=== PATIENT | female | born 2000 | race Hispanic/Latino ===

== ENCOUNTER 2019-12-17 21:14 | Inpatient (IN) | payer MEDICAID ==
[~2019-12-17] VITALS: Ht 160 cm; Wt 86.6 kg
[~2019-12-17 21:14] MED LIST: DOCU-116 PO; FERR325C PO; IBUP-2077 PO; PREN-64 PO
[2019-12-17] MEDS ORDERED: BENZOCAINE/LANOLIN/ALOE VERA 60 ML AEROSOL TP PRN (22:00)
[2019-12-17] MEDS ORDERED: WITCH HAZEL 1 PAD TP PRN (22:00)
[2019-12-17] MEDS ORDERED: ACETAMINOPHEN-CODEINE 300/30MG TAB PO PRN (22:00)
[2019-12-17] MEDS ORDERED: DIPH,PERTUSS(ACELL),TET VAC/PF 0.5 ML VIAL IM PRN (22:00)
[2019-12-17] MEDS ORDERED: LANOLIN 30GM OINTMENT TP PRN (22:00)
[2019-12-17] MEDS ORDERED: OXYTOCIN 10 USP UNITS/ML IM SCH ×2 (22:00→22:30)
[2019-12-17] MEDS ORDERED: ACETAMINOPHEN 325 MG TAB PO PRN (22:00)
[2019-12-17] MEDS ORDERED: MEASLES/MUMPS/RUBELLA VACCINE, LIVE 0.5 ML/VIAL SQ PRN (22:00)
[2019-12-17] MEDS ORDERED: LACTATED RINGERS 1000ML 1,000 ML IV PRN (22:30)
[2019-12-17 22:51] LABS: HEMATOCRIT 33.9 % (36-48); MEAN CORPUSCULAR HEMOGLOBIN 26.5 pg (27.0-33.0); MEAN CORPUSCULAR HGB CONC 33.6 g/dL (32.0-36.0); MEAN CORPUSCULAR VOLUME 78.8 fL (80-100); RED BLOOD CELL COUNT(AUTO) 4.3 MIL/uL (4.00-5.50); RED CELL DISTRIBUTION WIDTH 13.2 % (11.0-15.5); WHITE BLOOD COUNT (AUTO) 17.1 K/uL (4.8-10.8)
[2019-12-18] MEDS: IBUPROFEN 600 MG TABLET PO PRN ×3 (00:02→16:08)
[2019-12-18 01:11] LABS: APPEARANCE,URINE Cloudy (CLEAR); BILIRUBIN,URINE Small (NEGATIVE); COLOR,URINE Red (YELLOW); GLUCOSE, URINE (UA) Negative (NEGATIVE); KETONES,URINE 15 mg/dL (NEGATIVE); LEUKOCYTE ESTERASE ,URINE Small (NEGATIVE); NITRATE,URINE Negative (NEGATIVE); OCCULT BLOOD,URINE Large (NEGATIVE); PROTEIN,URINE POS 1+ mg/dL (NEGATIVE)
[2019-12-18 01:30] LABS: BACTERIA,URINE None Seen /HPF (None Seen); RBC,URINE 51-100 /HPF (0-1); SQUAMOUS EPITHELIAL CELL,UR Rare /HPF (0-2)
[2019-12-18 02:43] LABS: AMPHET/METH SCREEN,URINE NEGATIVE (NEGATIVE); BARBITURATE SCREEN, URINE NEGATIVE (NEGATIVE); BENZODIAZEPINES SCREEN,URINE NEGATIVE (NEGATIVE); CANNABINOID SCREEN,URINE NEGATIVE (NEGATIVE); COCAINE SCREEN,URINE NEGATIVE (NEGATIVE); OPIATE SCREEN,URINE NEGATIVE (NEGATIVE); PHENCYCLIDINE SCREEN,URINE NEGATIVE (NEGATIVE)
--- NOTE | 2019-12-18 03:40 | NUR ---
REPORT Report given to Bridget Moscoso RN and patient care endorsed
[2019-12-18 04:44] VITALS: BP_SYST 101; BP_SYST 96; BP_DIAS 55; BP_DIAS 57
[2019-12-18 07:50] VITALS: BP 125/72
[2019-12-18] MEDS: DOCUSATE SODIUM 100 MG CAP PO SCH ×2 (08:30→19:54)
[2019-12-18 09:06] LABS: RAPID PLASMA REAGIN NONREACTIVE (NONREACTIVE)
[2019-12-18 12:00] VITALS: BP 116/64
--- NOTE | 2019-12-18 15:03 | NUR ---
HISTORY OF MARIJUANA USE SW spoke with patient. She states she lives with her boyfriend, Roque Jacobs at [address] [place] [address] in [place]. She has a 4 year old daughter who lives with patient's mother. No home services or DME. Patient is able to complete ADL's and drives. She is presently not working but her boyfriend works and earns about $1000 a month. Patient reports that all needs are met at this time. She also reports that she has necessary items for new baby including a car seat. Patient reports no hx of domestic or emotional abuse. No hx of legal problems or casemanagement/counselors. Patient also reports no hx of mental health issues or suicide attempts. Patient does admit to using marijuana in the past but stated she had stopped. She also states that she was found positive about 6 months ago but felt that it was because she was around others who were smoking. Patient states she removed herself from that situation due to being . Patient stated that she does not feel that she needs substance abuse counseling due to not using marijuana in a while. Patient cleared to be discharged home with baby. No further Social Service action required at this time. Addendum: 12/18/19 at 1509 by HEATHER BUSBY Amended: Links added.
--- NOTE | 2019-12-18 18:55 | NUR ---
REPORT GIVEN TO ALISSON HENAO L/D AND PATIENT CARE TRANSFERED AT THIS TIME. PATIENT REMAINS STABLE AND DENIES PAIN AFTER MEDICATED WITH MOTRIN.
[2019-12-18 19:49] VITALS: BP 123/67
--- NOTE | 2019-12-18 19:55 | NUR ---
ROBYN Mccrary medication use and possible se explained to patient. Patient verbalizes understanding and medication administered. Addendum: 12/18/19 at 2021 by ISAIAH YOO RN RN Amended: Links added.
[2019-12-18 23:45] VITALS: BP 106/57
[2019-12-19 03:59] VITALS: BP 115/67
--- NOTE | 2019-12-19 07:25 | NUR ---
REPORT Report to Wolfgang Hankins LVN. pt care endorsed
[2019-12-19 08:05] VITALS: BP 111/61
[2019-12-19] MEDS: DOCUSATE SODIUM 100 MG CAP PO SCH (09:09)
[2019-12-19] MEDS: IBUPROFEN 600 MG TABLET PO PRN (09:10)
--- NOTE | 2019-12-19 11:45 | NUR ---
SPOKE WITH DR. DEL TORO VIA TELEPHONE TO UPDATE ON PATIENT'S STATUS. NEW ORDERS RECEIVED TO DISCHARGE PATIENT HOME AND RETURN TO CLINIC IN 2-3 WEEKS.
--- NOTE | 2019-12-19 12:15 | NUR ---
DISCHARGE INSTRUCTIONS READ AND EXPLAINED TO PATIENT. QUESTIONS INVITED AND ANSWERED. REEDUCATED PATIENT ON HEMORRHAGE AND IMPORTANCE OF FOLLOWING COVID19 PRECAUTIONS. PATIENT VOICED UNDERSTANDING.
--- NOTE | 2019-12-19 12:40 | NUR ---
PATIENT LEFT UNIT VIA WHEELCHAIR WITH BABY IN ARMS. PERSONAL VEHICLE USED FOR TRANSPORTATION ACCOMPANIED BY SIGNIFICANT OTHER. BABY SECURE IN CARSEAT. NO COMPLAINTS OR CONCERNS ADDRESSED FROM PATIENT ON DISCHARGE.
[2019-12-20 12:11] LABS: HEPATITIS Bs ANTIGEN SCREEN P Negative (Negative)
== END 2019-12-19 12:40 | disposition home or self-care (01) | DRG 560 ==
LOC: EDH 21:14 → LDH 21:31 → OBSVTOIN 21:31 → WSH 12-18 01:05
PROVIDERS: ADMIT Obstetrics & Gynecology; ATTEND Obstetrics & Gynecology
PROC: 10E0XZZ Delivery of Products of Conception, External Approach (ICD-10-PCS; principal; 2019-12-18)
PROC: 3E0234Z Introduction of Serum, Toxoid and Vaccine into Muscle, Percutaneous Approach (ICD-10-PCS; 2019-12-18)
PROC: 3E0134Z Introduction of Serum, Toxoid and Vaccine into Subcutaneous Tissue, Percutaneous Approach (ICD-10-PCS; 2019-12-18)
DX: O80 Encounter for full-term uncomplicated delivery (principal); Z37.0 Single live birth; Z23 Encounter for immunization; Z3A.38 38 weeks gestation of pregnancy
CPT/HCPCS: 36415; 80305; 81001; 85027; 86592; 86701; 86850; 86900; 86901; 87340; 87390; 90715; G0378

== ENCOUNTER 2020-03-21 09:02 | Emergency (ER) | payer MEDICAID ==
[~2020-03-21 09:02] MED LIST changes: -DOCU-116 PO; -FERR325C PO; -IBUP-2077 PO
[2020-03-21 09:30] LABS: BASOPHILS % (AUTO) 0.3 % (0.0-5.0); EOSINOPHILS % (AUTO) 3.8 % (0.0-8.0); LYMPHOCYTES % (AUTO) 45.3 % (21.0-51.0); MEAN CORPUSCULAR HEMOGLOBIN 26.3 pg (27.0-33.0); MEAN CORPUSCULAR HGB CONC 32.9 g/dL (32.0-36.0); MEAN CORPUSCULAR VOLUME 79.8 fL (80-100); MONOCYTES % (AUTO) 7.3 % (3.0-13.0); NEUTROPHILS % (AUTO) 43.3 % (40.0-77.0); PLATELET COUNT (AUTO) 255 K/uL (130-400); RED BLOOD CELL COUNT(AUTO) 4.76 MIL/uL (4.00-5.50); RED CELL DISTRIBUTION WIDTH 13.3 % (11.0-15.5); WHITE BLOOD COUNT (AUTO) 7.4 K/uL (4.8-10.8)
[2020-03-21 09:43] LABS: APPEARANCE,URINE TURBID (CLEAR); BILIRUBIN,URINE SMALL (NEGATIVE); COLOR,URINE RED (YELLOW); GLUCOSE, URINE (UA) NEGATIVE (NEGATIVE); KETONES,URINE NEGATIVE (NEGATIVE); LEUKOCYTE ESTERASE ,URINE TRACE (NEGATIVE); NITRATE,URINE NEGATIVE (NEGATIVE); OCCULT BLOOD,URINE LARGE (NEGATIVE); PROTEIN,URINE 30 mg/dL (NEGATIVE); UROBILINOGEN,URINE 0.2 mg/dL (0.2-1.0)
[2020-03-21 09:47] LABS: HCG,QUAL RESULT NEGATIVE (NEGATIVE)
[2020-03-21 09:49] LABS: BACTERIA,URINE Rare /HPF (None Seen); RBC,URINE TNTC /HPF (0-1); SQUAMOUS EPITHELIAL CELL,UR Rare /HPF (0-2)
== END 2020-03-21 10:48 | disposition home or self-care (01) ==
LOC: EDH 09:02
DX: N93.9 Abnormal uterine and vaginal bleeding, unspecified (principal); R10.2 Pelvic and perineal pain
CPT/HCPCS: 36415; 76817; 81001; 81025; 84702; 85025

== ENCOUNTER 2023-03-10 12:32 | Observation (INO) | payer MEDICAID, OTHER ==
[~2023-03-10] VITALS: Ht 160 cm; Wt 96.6 kg
[2023-03-10 13:00] LABS: APPEARANCE,URINE CLEAR (CLEAR); BILIRUBIN,URINE NEGATIVE (NEGATIVE); COLOR,URINE YELLOW (YELLOW); GLUCOSE, URINE (UA) NEGATIVE (NEGATIVE); KETONES,URINE 5 mg/dL (NEGATIVE); LEUKOCYTE ESTERASE ,URINE NEGATIVE Leu/uL (NEGATIVE); NITRATE,URINE NEGATIVE (NEGATIVE); OCCULT BLOOD,URINE NEGATIVE (NEGATIVE); PH,URINE 5.5 (5.0-8.0); PROTEIN,URINE 30 mg/dL (NEGATIVE)
[2023-03-10 13:07] LABS: ADD UA MICROSCOPIC YES; BACTERIA,URINE RARE /HPF (None Seen); MUCUS,URINE MANY LPF (None Seen); SQUAMOUS EPITHELIAL CELL,UR FEW /HPF (0-2)
[2023-03-10] MEDS ORDERED: LACTATED RINGERS 1000ML IV ONE (13:30)
== END 2023-03-10 15:40 | disposition home or self-care (01) ==
LOC: LDH 12:32
PROVIDERS: ADMIT Obstetrics & Gynecology; ATTEND Obstetrics & Gynecology
DX: O62.9 Abnormality of forces of labor, unspecified (principal); O99.891 Other specified diseases and conditions complicating pregnancy; M54.50 Low back pain, unspecified; R10.30 Lower abdominal pain, unspecified; O26.893 Other specified pregnancy related conditions, third trimester; K59.00 Constipation, unspecified; Z3A.37 37 weeks gestation of pregnancy
CPT/HCPCS: 59025; 96360; 81001; G0378 ×3; G0379; J7120

== ENCOUNTER 2023-03-12 08:13 | Inpatient (IN) | payer MEDICAID, OTHER ==
[2023-03-12 08:59] LABS: HEMATOCRIT 33.4 % (36-48); MEAN CORPUSCULAR HEMOGLOBIN 26.4 pg (27.0-33.0); MEAN CORPUSCULAR HGB CONC 33.2 g/dL (32.0-36.0); MEAN CORPUSCULAR VOLUME 79.3 fL (79-99); RED BLOOD CELL COUNT(AUTO) 4.21 MIL/uL (4.00-5.50); RED CELL DISTRIBUTION WIDTH 13.7 % (11.0-15.5); WHITE BLOOD COUNT (AUTO) 13.5 K/uL (4.8-10.8)
[2023-03-12] MEDS ORDERED: LACTATED RINGERS 1000ML 1,000 ML IV PRN (09:00)
[2023-03-12] MEDS ORDERED: MEPERIDINE-PF 50 MG/ML SYG IVP PRN (09:00)
[2023-03-12] MEDS ORDERED: AMPICILLIN 2GM+NS 100ML 100 ML IV SCH (09:00)
[2023-03-12] MEDS ORDERED: PROMETHAZINE HCL 25 MG/ML 1ML AMPULE IM PRN (09:00)
[2023-03-12] MEDS ORDERED: OXYTOCIN-LR 30 UNITS/500ML 500 ML IV SCH ×2 (09:00→10:00)
[2023-03-12 09:47] LABS: HIV 1&2 ANTIBODY Non-Reactive (Negative); HIV-1 p24 Antigen Non-Reactive (Negative)
[2023-03-12] MEDS ORDERED: BENZOCAINE/LANOLIN/ALOE VERA 60 ML AEROSOL TP PRN (10:00)
[2023-03-12] MEDS ORDERED: ACETAMINOPHEN WITH CODEINE 1 TAB TAB PO PRN (10:00)
[2023-03-12] MEDS ORDERED: DIPH,PERTUSS(ACELL),TET VAC/PF 0.5 ML VIAL IM PRN (10:00)
[2023-03-12] MEDS ORDERED: MEASLES/MUMPS/RUBELLA VACCINE, LIVE 0.5 ML/VIAL SQ PRN (10:00)
[2023-03-12] MEDS ORDERED: LANOLIN 30GM OINTMENT TP PRN (10:00)
[2023-03-12] MEDS ORDERED: WITCH HAZEL 1 PAD TP PRN (10:00)
[2023-03-12] MEDS ORDERED: ACETAMINOPHEN 325 MG TAB PO PRN (10:00)
[2023-03-12 11:26] VITALS: BP 128/76; PULSE 75; RESP 18
[2023-03-12] MEDS: IBUPROFEN 600 MG TABLET PO PRN ×2 (12:40→18:42)
[2023-03-12] MEDS ORDERED: AMPICILLIN 1GM+NS 50ML 50 ML IV SCH (13:00)
[2023-03-12 13:11] LABS: RAPID PLASMA REAGIN NONREACTIVE (NONREACTIVE)
[2023-03-12 15:05] VITALS: BP 112/75; PULSE 66; RESP 18
[2023-03-12 15:42] VITALS: BP 120/74; PULSE 65; RESP 18
[2023-03-12] MEDS ORDERED: FLU VACC QS2023-24(6MOS UP)/PF 60 MCG/0.5 ML IM ONE (17:30)
[2023-03-12 19:35] VITALS: BP 108/61; PULSE 88; RESP 18
[2023-03-12] MEDS ORDERED: PREN-134 PO (19:41)
[2023-03-12] MEDS: DOCUSATE SODIUM 100 MG CAP PO SCH (20:15)
[2023-03-12 23:26] VITALS: BP 128/76; PULSE 75; RESP 18
[2023-03-13 03:32] VITALS: BP 112/74; PULSE 63; RESP 20
[2023-03-13 06:53] LABS: HEMATOCRIT 27.4 % (36-48); MEAN CORPUSCULAR HEMOGLOBIN 26.8 pg (27.0-33.0); MEAN CORPUSCULAR HGB CONC 33.2 g/dL (32.0-36.0); MEAN CORPUSCULAR VOLUME 80.6 fL (79-99); RED BLOOD CELL COUNT(AUTO) 3.4 MIL/uL (4.00-5.50); WHITE BLOOD COUNT (AUTO) 9.3 K/uL (4.8-10.8)
[2023-03-13 07:16] VITALS: BP 122/77; PULSE 68; RESP 16
[2023-03-13] MEDS: DOCUSATE SODIUM 100 MG CAP PO SCH (08:23)
[2023-03-13] MEDS: IBUPROFEN 600 MG TABLET PO PRN (08:28)
[2023-03-13 13:44] VITALS: BP 117/76; PULSE 76; RESP 18
[2023-03-13] MEDS ORDERED: IBUP-2077 PO (16:05)
[2023-03-13 16:43] VITALS: BP 128/77; PULSE 73; RESP 16
== END 2023-03-13 16:45 | disposition home or self-care (01) | DRG 807 ==
LOC: OBSVTOIN 08:13 → LDH 08:13 → WSH 15:00
PROVIDERS: ADMIT Obstetrics & Gynecology; ATTEND Obstetrics & Gynecology
PROC: 10E0XZZ Delivery of Products of Conception, External Approach (ICD-10-PCS; principal; 2023-03-12)
PROC: 3E02340 Introduction of Influenza Vaccine into Muscle, Percutaneous Approach (ICD-10-PCS; 2023-03-12)
DX: O62.3 Precipitate labor (principal); Z37.0 Single live birth; Z3A.38 38 weeks gestation of pregnancy; Z23 Encounter for immunization
CPT/HCPCS: 36415; 85027; 86592; 86701; 86850; 86900; 86901; 87340; 87390; 90715; A4351; G0378; J0290; J2175; J2550; J7120; Q2035; Q2038